=== PATIENT | male | born 1975 | race African-American/Black ===

== ENCOUNTER 2021-10-29 06:21 | Emergency (ER) | payer MEDICAID ==
[~2021-10-29] VITALS: Ht 175.3 cm; Wt 100.0 kg
[2021-10-29] MEDS ORDERED: ONDANSETRON HCL 4MG TABLET PO ONE (06:45)
[2021-10-29] MEDS ORDERED: SODIUM CHLORIDE 0.9% 1,000 ML IV ONE (06:45)
[2021-10-29 07:44] LABS: CHLORIDE 105 mEq/L (98-107)
[2021-10-29 07:51] LABS: BASOPHILS % 0.2 % (0.0-2.0); EOSINOPHILS % 1.4 % (0.0-5.0); HEMATOCRIT. 41.3 % (42.0-52.0); HEMOGLOBIN. 14.1 g/dL (14.0-18.0); LYMPHOCYTES % 48.8 % (20.0-50.0); MEAN CORPUSCULAR HEMOGLOBIN 31.3 pg (28.0-32.0); MEAN CORPUSCULAR VOLUME 91.7 fL (80.0-94.0); MEAN PLATELET VOLUME 8.2 fl (7.4-10.4); MONOCYTES % 5.8 % (2.0-8.0); NEUTROPHILS % 43.8 % (40.0-76.0); PLATELET 303 x1000/uL (130-400); RED BLOOD CELL COUNT 4.51 mill/uL (4.7-6.1); RED CELL DISTRIBUTION WIDTH 14.5 % (11.6-14.6)
[2021-10-29 07:52] LABS: ETHANOL BLOOD 38 mg/dL
[2021-10-29] MEDS ORDERED: LORAZEPAM 2MG/ML CPJ IV ONE (08:15)
[2021-10-29 13:15] VITALS: BP 118/78
== END 2021-10-29 13:20 | disposition home or self-care (01) ==
LOC: ER 06:51
DX: F12.180 Cannabis abuse with cannabis-induced anxiety disorder (principal); F10.129 Alcohol abuse with intoxication, unspecified; Y90.1 Blood alcohol level of 20-39 mg/100 ml; R00.0 Tachycardia, unspecified
CPT/HCPCS: 36415; 80053; 80320; 85025; 96361; 96374; 99285; J2060; J7030; Q0162; G0480